=== PATIENT | female | born 1970 | race African-American/Black ===

== ENCOUNTER 2016-12-15 19:03 | Emergency (ER) | payer MEDICAID ==
[~2016-12-15] VITALS: Ht 157.5 cm; Wt 81.6 kg
[~2016-12-15 19:03] MED LIST: ARIP1TAB15 PO; CHOL20007 OR; CLON1TAB3 PO; DOCU100T15 PO; FER325T PO; FLU220IH; GABA-339 PO; LEVE500T22 PO; NIFE90TA30 PO; OXCA600T3 PO; PANT1INJ3 PO; POTA10SO11 PO; PROZAC PO; QUET300T14 PO; RIVA20TA PO; TEMA30CA PO
[2016-12-15] MEDS ORDERED: CLINDAMYCIN 600 MG/4 ML VL IM ONE ×2 (20:45→22:30)
[2016-12-15] MEDS ORDERED: SODIUM CHLORIDE 0.9% 1,000 ML IV ONE (21:15)
[2016-12-15 22:02] LABS: Albumin 3.2 g/dL (3.4-5.0); BUN/Creatinine Ratio 15.9; Calcium 9.4 mg/dL (8.5-10.1); Potassium 3.2 mmol/L (3.5-5.1)
[2016-12-15 22:03] LABS: DEFINITIVE VIEW TRANSMISSION; Hemoglobin 7.8 g/dL (12.2-16.2); Mean Corpuscular Hemoglobin 19.3 pg (28.0-32.0); Mean Corpuscular Hgb Conc. 29.9 g/dL (32.0-36.0); Mean Corpuscular Volume 64.6 fL (80.0-100.0); Mean Platelet Volume 8.9 fL (7.4-10.4); Platelet Count (auto) 340 10^3/uL (140-450); White Blood Cell 11.2 10^3/uL (4.4-10.8)
[2016-12-15 22:04] LABS: Bilirubin, Total 0.2 mg/dL (0.2-1.0); Red Cell Distribution Width 23.8 % (11.6-16.0); Total Protein 7.2 g/dL (6.4-8.2)
[2016-12-15 22:05] LABS: Metamyelocytes % 0; Myelocytes % 0; Promyelocytes % 0; Reactive Lymphocytes 0
[2016-12-15] MEDS ORDERED: HYDROcodone-ACET 10/325MG TAB PO ONE (22:30)
[2016-12-15 22:41] VITALS: BP 145/98
[2016-12-15 22:43] LABS: Platelet Estimate Adequate
[2016-12-15 22:44] LABS: Anisocytosis Moderate; Hypochromia Marked; Microcytosis Marked; Ovalocytes FEW
== END 2016-12-15 22:45 | disposition home or self-care (01) ==
LOC: ER 19:08
DX: L03.818 Cellulitis of other sites (principal); L02.818 Cutaneous abscess of other sites; I10 Essential (primary) hypertension; F17.210 Nicotine dependence, cigarettes, uncomplicated; Z88.6 Allergy status to analgesic agent; Z79.899 Other long term (current) drug therapy
CPT/HCPCS: 36415; 80053; 85007; 85027; 85049; 87040; 87205; 96360; 96372; 99284; J7030

== ENCOUNTER 2017-01-19 05:57 | Emergency (ER) | payer MEDICAID ==
[~2017-01-19] VITALS: Ht 157.5 cm; Wt 83.9 kg
[2017-01-19 07:44] LABS: DEFINITIVE VIEW TRANSMISSION; Hematocrit 29.6 % (36.0-46.0); Mean Corpuscular Hemoglobin 18.9 pg (28.0-32.0); Mean Corpuscular Hgb Conc. 30.4 g/dL (32.0-36.0); Mean Corpuscular Volume 62.3 fL (80.0-100.0); Mean Platelet Volume 11.1 fL (7.4-10.4); Platelet Count (auto) 404 10^3/uL (140-450); SUSPECT VIEW TRANSMISSION
[2017-01-19 07:46] LABS: Red Cell Distribution Width 25.4 % (11.6-16.0); White Blood Cell 7.2 10^3/uL (4.4-10.8)
[2017-01-19 07:51] LABS: Metamyelocytes % 0; Myelocytes % 0; Promyelocytes % 0; Reactive Lymphocytes 0
[2017-01-19] MEDS ORDERED: NALBUPHINE HCL 10 MG/1ml INJECTION IV ONE (08:00)
[2017-01-19] MEDS ORDERED: PROMETHAZINE HCL 25 MG/ML 1ML IV ONE (08:00)
[2017-01-19 08:01] LABS: Platelet Estimate Adequate
[2017-01-19 08:02] LABS: Anisocytosis Marked; Hypochromia Marked; Microcytosis Marked
[2017-01-19 08:03] LABS: Giant Platelets Few; Tear Drop Cells FEW
[2017-01-19 08:04] LABS: Ovalocytes FEW
[2017-01-19 08:20] LABS: Albumin 3.8 g/dL (3.4-5.0); BUN/Creatinine Ratio 15.7; Bilirubin, Total 0.3 mg/dL (0.2-1.0); Calcium 9.8 mg/dL (8.5-10.1); Potassium 3.2 mmol/L (3.5-5.1); Total Protein 8.3 g/dL (6.4-8.2)
[2017-01-19 09:02] LABS: Magnesium 2.2 mg/dL (1.6-2.6)
[2017-01-19 09:32] VITALS: BP 150/92
[2017-01-19 09:32] LABS: Urine Bilirubin Negative (Negative); Urine Color Yellow (Yellow); Urine Glucose Normal (Normal); Urine Ketone Negative (Negative); Urine Mucus FEW (None Seen); Urine Nitrite Negative (Negative); Urine RBC 1985 /hpf (0 - 4); Urine Urobilinogen Normal (Negative); Urine pH 6.5 (5.0-8.0)
[2017-01-19 09:33] LABS: Urine Blood 3+ /uL (Negative)
[2017-01-19] MEDS ORDERED: POTASSIUM CHL 10% (20 MEQ/15ML) ORAL SOLN PO ONE (12:00)
== END 2017-01-19 12:47 | disposition home or self-care (01) ==
LOC: ER 06:03
DX: N93.9 Abnormal uterine and vaginal bleeding, unspecified (principal); D25.9 Leiomyoma of uterus, unspecified; D50.9 Iron deficiency anemia, unspecified; I82.509 Chronic embolism and thrombosis of unspecified deep veins of unspecified lower extremity; G40.909 Epilepsy, unspecified, not intractable, without status epilepticus; N39.0 Urinary tract infection, site not specified; F12.10 Cannabis abuse, uncomplicated; F15.10 Other stimulant abuse, uncomplicated; E87.6 Hypokalemia; I10 Essential (primary) hypertension; F17.210 Nicotine dependence, cigarettes, uncomplicated; Z86.73 Personal history of transient ischemic attack (TIA), and cerebral infarction without residual deficits
CPT/HCPCS: 36415; 76830; 76856; 80053; 81001; 83690; 83735; 84702; 85007; 85025; 85027; 93971; 96374; 96375; 99285; G0434; J2300; J2550

== ENCOUNTER 2017-06-06 19:45 | Emergency (ER) | payer MEDICAID ==
[~2017-06-06] VITALS: Ht 157.5 cm; Wt 81.6 kg
[2017-06-06 21:21] LABS: Basophils # (auto) 0 uL; CONDITION Y; DEFINITIVE SEE PRINTOUT; Eosinophils # (auto) 0.1 uL; Hematocrit 22.8 % (36.0-46.0); Lymphocytes # (auto) 1.8 uL; Lymphocytes % (auto) 29.8 % (10.0-50.0); Mean Corpuscular Hemoglobin 18.7 pg (28.0-32.0); Mean Corpuscular Volume 62.2 fL (80.0-100.0); Mean Platelet Volume 10.5 fL (7.4-10.4); Monocytes # (auto) 0.5 uL; Monocytes % (auto) 8.7 % (0.0-12.0); Neutrophils # (auto) 3.6 uL; Neutrophils % (auto) 60.5 % (37.0-80.0); Platelet Count (auto) 336 10^3/uL (140-450); SUSPECT SEE PRINTOUT; White Blood Cell 5.9 10^3/uL (4.4-10.8)
[2017-06-06 21:39] LABS: INR 0.93 (0.9-1.15); Partial Thromboplastin Time 20.5 sec (22.64-33.71); Prothrombin Time 10.1 sec (9.37-12.3)
[2017-06-06 21:45] LABS: Red Cell Distribution Width 25.9 % (11.6-16.0)
[2017-06-06 21:47] LABS: Hemoglobin 6.9 g/dL (12.2-16.2)
[2017-06-06 21:59] LABS: Albumin 3.1 g/dL (3.4-5.0); Alkaline Phosphatase 67 U/L (45-117); Anion Gap 5 (5-15); Aspartate Aminotransferase 14 U/L (15-37); BUN/Creatinine Ratio 14.1; Bilirubin, Total < 0.1 mg/dL (0.2-1.0); Blood Urea Nitrogen 13 mg/dL (7-18); Calcium 9.2 mg/dL (8.5-10.1); Carbon Dioxide 26 mmol/L (21-32); Chloride 107 mmol/L (98-107); GFR African American 85 mL/min; GFR Non-African American 70 mL/min; Glucose 94 mg/dL (74-106); Potassium 3.1 mmol/L (3.5-5.1); Sodium 138 mmol/L (136-145); Total Protein 6.5 g/dL (6.4-8.2)
[2017-06-06 22:03] LABS: Anisocytosis Marked; Hypochromia Marked; Microcytosis Marked
[2017-06-06 22:04] LABS: Tear Drop Cells FEW
[2017-06-06 22:21] LABS: Ovalocytes FEW; Platelet Estimate Adequate; Schistocytes FEW
[2017-06-06 22:22] LABS: Large Platelets FEW
[2017-06-06 23:21] LABS: Urine Bilirubin Negative (Negative); Urine Color Yellow (Yellow); Urine Glucose Normal (Normal); Urine Ketone Negative (Negative); Urine Mucus FEW (None Seen); Urine Nitrite Negative (Negative); Urine RBC 168 /hpf (0 - 4); Urine Squamous Epithelial Cell FEW /hpf (<5); Urine Urobilinogen Normal (Negative); Urine pH 6.5 (5.0-8.0)
[2017-06-06 23:26] LABS: Urine Blood 2+ /uL (Negative)
[2017-06-07] VITALS (12 sets, daily range): BP systolic 135–159; BP diastolic 71–95
[2017-06-07] MEDS ORDERED: POTASSIUM CHL 20 Meq TABLET PO ONE (06:15)
== END 2017-06-07 07:30 | disposition home or self-care (01) ==
LOC: ER 19:57
DX: N93.8 Other specified abnormal uterine and vaginal bleeding (principal); N39.0 Urinary tract infection, site not specified; D64.9 Anemia, unspecified; F12.10 Cannabis abuse, uncomplicated; F15.10 Other stimulant abuse, uncomplicated; I10 Essential (primary) hypertension; F17.210 Nicotine dependence, cigarettes, uncomplicated; Z86.2 Personal history of diseases of the blood and blood-forming organs and certain disorders involving the immune mechanism; Z86.73 Personal history of transient ischemic attack (TIA), and cerebral infarction without residual deficits; Z88.5 Allergy status to narcotic agent
CPT/HCPCS: 36415; 80053; 80307; 81001; 85025; 85610; 85730; 86850; 86900; 86901; 86902; 99285; J7040; P9016; 36430; 86922

== ENCOUNTER 2017-09-09 07:17 | Emergency (ER) | payer MEDICAID ==
[~2017-09-09] VITALS: Ht 157.5 cm; Wt 90.7 kg
[2017-09-09] MEDS ORDERED: SODIUM CHLORIDE 0.9% 500 ML IVB ONE (08:04)
[2017-09-09] MEDS ORDERED: HYDROmorphone HCL 2 MG/ML VL IV ONE (08:15)
[2017-09-09] MEDS ORDERED: ONDANSETRON HCL 4 MG/2 ML VIAL IV ONE (08:15)
[2017-09-09 08:23] LABS: Hemoglobin 12.6 g/dL (12.2-16.2); Lymphocytes # (auto) 0.8 uL; Mean Platelet Volume 8.5 fL (6.9-10.8); Monocytes # (auto) 0.5 uL; Neutrophils # (auto) 7.7 uL; Neutrophils % (auto) 84.4 % (37.0-80.0); White Blood Cell 9.1 10^3/uL (4.4-10.8)
[2017-09-09 08:25] LABS: Basophils # (auto) 0 uL; Basophils % (auto) 0.5 % (0.0-2.0); Eosinophils # (auto) 0 uL; Eosinophils % (auto) 0.5 % (0.0-7.0); Hematocrit 39.5 % (36.0-46.0); Lymphocytes % (auto) 8.6 % (10.0-50.0); Mean Corpuscular Hemoglobin 23.8 pg (28.0-32.0); Mean Corpuscular Volume 74.2 fL (80.0-100.0); Nucleated Red Blood Cells % 0.1 %; Platelet Count (auto) 300 10^3/uL (140-450)
[2017-09-09 08:26] LABS: Red Cell Distribution Width 24.8 % (11.8-14.3)
[2017-09-09 08:47] LABS: Albumin 3.9 g/dL (3.4-5.0); BUN/Creatinine Ratio 16.7; Bilirubin, Total 0.2 mg/dL (0.2-1.0); Total Protein 8.2 g/dL (6.4-8.2)
[2017-09-09 08:53] LABS: Potassium 3.8 mmol/L (3.5-5.1)
[2017-09-09 09:38] LABS: Urine Bilirubin Negative (Negative); Urine Blood 3+ /uL (Negative); Urine Color Yellow (Yellow); Urine Glucose Normal (Normal); Urine Ketone Negative (Negative); Urine Nitrite Negative (Negative); Urine RBC 2456 /hpf (0 - 4); Urine Squamous Epithelial Cell FEW /hpf (<5); Urine Urobilinogen Normal (Negative)
[2017-09-09 10:09] LABS: Hypochromia Moderate; Microcytosis Moderate; Ovalocytes FEW; Platelet Estimate Adequate; Schistocytes FEW; Tear Drop Cells FEW
[2017-09-09 10:10] LABS: Anisocytosis Moderate
[2017-09-09 11:11] VITALS: BP 134/88
== END 2017-09-09 11:30 | disposition home or self-care (01) ==
LOC: EDBD 07:17 → ER 07:17
DX: N93.8 Other specified abnormal uterine and vaginal bleeding (principal); D25.9 Leiomyoma of uterus, unspecified; F17.210 Nicotine dependence, cigarettes, uncomplicated; I10 Essential (primary) hypertension; I25.2 Old myocardial infarction; Z86.73 Personal history of transient ischemic attack (TIA), and cerebral infarction without residual deficits; Z88.6 Allergy status to analgesic agent
CPT/HCPCS: 36415; 76856; 80053; 81001; 83690; 85025; 94761; 96361; 96374; 96375; 99285; J1170; J2405; J7030

== ENCOUNTER 2017-12-05 11:31 | Emergency (ER) | payer MEDICAID ==
[~2017-12-05] VITALS: Ht 157.5 cm; Wt 91.6 kg
[2017-12-05 11:40] VITALS: BP 132/94
[2017-12-05 12:15] LABS: Basophils # (auto) 0.1 uL; Eosinophils # (auto) 0.1 uL; Eosinophils % (auto) 1.1 % (0.0-7.0); White Blood Cell 6.9 10^3/uL (4.4-10.8)
[2017-12-05 12:17] LABS: Hematocrit 42.9 % (36.0-46.0); Hemoglobin 13.8 g/dL (12.2-16.2); Lymphocytes # (auto) 1.4 uL; Lymphocytes % (auto) 19.8 % (10.0-50.0); Mean Corpuscular Hemoglobin 24.9 pg (28.0-32.0); Mean Corpuscular Volume 77.6 fL (80.0-100.0); Monocytes # (auto) 0.4 uL; Neutrophils % (auto) 72.1 % (37.0-80.0); Nucleated Red Blood Cells % 0.3 %; Platelet Count (auto) 383 10^3/uL (140-450); Red Blood Cells 5.53 10^6/uL (4.0-5.20)
[2017-12-05 12:22] LABS: Red Cell Distribution Width 20.5 % (11.8-14.3)
[2017-12-05 12:43] LABS: Albumin 3.9 g/dL (3.4-5.0); Anion Gap 6 (5-15); Blood Urea Nitrogen 19 mg/dL (7-18); Calcium 10.8 mg/dL (8.5-10.1); Carbon Dioxide 27 mmol/L (21-32); Chloride 105 mmol/L (98-107); GFR African American 105 mL/min; GFR Non-African American 87 mL/min; Glucose 109 mg/dL (74-106); Potassium 3.3 mmol/L (3.5-5.1); Sodium 138 mmol/L (136-145)
[2017-12-05 12:49] LABS: Alanine Aminotransferase 27 U/L (13-56); Alkaline Phosphatase 112 U/L (45-117); Aspartate Aminotransferase 16 U/L (15-37); Bilirubin, Total < 0.1 mg/dL (0.2-1.0); Total Protein 8.5 g/dL (6.4-8.2)
[2017-12-05] MEDS ORDERED: LEVETIRACETAM 500 MG TAB PO ONE (15:00)
== END 2017-12-05 15:43 | disposition home or self-care (01) ==
LOC: ER 11:31
DX: G40.909 Epilepsy, unspecified, not intractable, without status epilepticus (principal); I10 Essential (primary) hypertension; I25.2 Old myocardial infarction; G43.909 Migraine, unspecified, not intractable, without status migrainosus; F17.210 Nicotine dependence, cigarettes, uncomplicated
CPT/HCPCS: 36415; 70450; 80053; 82542; 85025

== ENCOUNTER 2018-01-08 05:30 | Emergency (ER) | payer MEDICAID ==
[~2018-01-08] VITALS: Ht 167.6 cm; Wt 90.7 kg
[2018-01-08 07:19] LABS: Basophils # (auto) 0.1 uL; Basophils % (auto) 0.8 % (0.0-2.0); Eosinophils # (auto) 0 uL; Eosinophils % (auto) 0.6 % (0.0-7.0); Hematocrit 40.1 % (36.0-46.0); Hemoglobin 13.2 g/dL (12.2-16.2); Lymphocytes # (auto) 0.8 uL; Lymphocytes % (auto) 12.8 % (10.0-50.0); Mean Corpuscular Hemoglobin 25.7 pg (28.0-32.0); Mean Corpuscular Hgb Conc. 32.9 g/dL (32.0-36.0); Mean Corpuscular Volume 78.1 fL (80.0-100.0); Monocytes # (auto) 0.4 uL; Monocytes % (auto) 6.1 % (0.0-12.0); Neutrophils % (auto) 79.7 % (37.0-80.0); Nucleated Red Blood Cells % 0.5 %; Platelet Count (auto) 316 10^3/uL (140-450); Red Blood Cells 5.13 10^6/uL (4.0-5.20); Red Cell Distribution Width 20.7 % (11.8-14.3); White Blood Cell 6.3 10^3/uL (4.4-10.8)
[2018-01-08 07:36] LABS: INR 0.95 (0.9-1.15); Prothrombin Time 10.3 sec (9.37-12.3)
[2018-01-08 07:37] LABS: Calcium 10.8 mg/dL (8.5-10.1)
[2018-01-08 07:39] LABS: BUN/Creatinine Ratio 23.4
[2018-01-08 07:42] LABS: Bilirubin, Total 0.4 mg/dL (0.2-1.0); Total Protein 8.9 g/dL (6.4-8.2)
[2018-01-08 07:46] LABS: Potassium 2.8 mmol/L (3.5-5.1)
[2018-01-08 08:24] VITALS: BP 169/105
[2018-01-08] MEDS ORDERED: POTASSIUM CHL 10% (20 MEQ/15ML) 15ml ORAL SOLN PO ONE (12:00)
== END 2018-01-08 12:31 | disposition home or self-care (01) ==
LOC: ER 05:32
DX: M79.605 Pain in left leg (principal); L29.9 Pruritus, unspecified; I10 Essential (primary) hypertension; I25.2 Old myocardial infarction; F17.210 Nicotine dependence, cigarettes, uncomplicated; Z86.73 Personal history of transient ischemic attack (TIA), and cerebral infarction without residual deficits; Z86.718 Personal history of other venous thrombosis and embolism; Z88.6 Allergy status to analgesic agent; Z79.899 Other long term (current) drug therapy
CPT/HCPCS: 36415; 80053; 85025; 85379; 85610; 93970

== ENCOUNTER 2018-12-05 15:32 | Emergency (ER) | payer MEDICAID ==
[~2018-12-05 15:32] MED LIST changes: -CLON1TAB3 PO; +CLON1TAB4 PO
[2018-12-05] MEDS ORDERED: HYDROcodone-ACET 10/325MG TAB PO ONE ×2 (15:45→16:00)
[2018-12-05 16:04] LABS: Basophils # (auto) 0 uL; Basophils % (auto) 0.7 % (0.0-2.0); Eosinophils # (auto) 0.1 uL; Eosinophils % (auto) 1.3 % (0.0-7.0); Hemoglobin 13.6 g/dL (12.2-16.2); Lymphocytes # (auto) 1.3 uL; Lymphocytes % (auto) 22.3 % (10.0-50.0); Mean Corpuscular Volume 81.7 fL (80.0-100.0); Monocytes # (auto) 0.5 uL; Monocytes % (auto) 8.2 % (0.0-12.0); Neutrophils # (auto) 3.8 uL; Neutrophils % (auto) 67.5 % (37.0-80.0); Nucleated Red Blood Cells % 0.1 %; Platelet Count (auto) 219 10^3/uL (140-450); Red Blood Cells 5.02 10^6/uL (4.0-5.20); White Blood Cell 5.6 10^3/uL (4.4-10.8)
[2018-12-05 16:25] LABS: Alanine Aminotransferase 34 U/L (13-56); Albumin 3.5 g/dL (3.4-5.0); Anion Gap 4 (5-15); Aspartate Aminotransferase 29 U/L (15-37); Blood Urea Nitrogen 19 mg/dL (7-18); Calcium 9.3 mg/dL (8.5-10.1); Carbon Dioxide 30 mmol/L (21-32); Chloride 108 mmol/L (98-107); Glucose 72 mg/dL (74-106); Potassium 3.1 mmol/L (3.5-5.1); Sodium 142 mmol/L (136-145)
[2018-12-05 16:30] LABS: Alkaline Phosphatase 124 U/L (45-117); Bilirubin, Total 0.3 mg/dL (0.2-1.0); GFR African American 81 mL/min; GFR Non-African American 67 mL/min; Total Protein 7.5 g/dL (6.4-8.2)
[2018-12-05] MEDS ORDERED: KETOROLAC TROMETH 60MG/2ML VIAL IM ONE (18:45)
[2018-12-05] MEDS ORDERED: POTASSIUM EFFERVESENT TAB 25 MEQ PO ONE (18:45)
[2018-12-05 19:30] VITALS: BP 151/89
== END 2018-12-05 20:01 | disposition home or self-care (01) ==
LOC: EDBD 15:32 → ER 15:35
DX: S39.012A Strain of muscle, fascia and tendon of lower back, initial encounter (principal); E87.6 Hypokalemia; I10 Essential (primary) hypertension; I25.2 Old myocardial infarction; F17.210 Nicotine dependence, cigarettes, uncomplicated; F12.90 Cannabis use, unspecified, uncomplicated; F15.90 Other stimulant use, unspecified, uncomplicated; Z88.5 Allergy status to narcotic agent; Z79.899 Other long term (current) drug therapy; Z86.73 Personal history of transient ischemic attack (TIA), and cerebral infarction without residual deficits; X50.9XXA Other and unspecified overexertion or strenuous movements or postures, initial encounter; Y93.89 Activity, other specified; Y99.8 Other external cause status; Y92.89 Other specified places as the place of occurrence of the external cause
CPT/HCPCS: 36415; 72100; 80053; 84484; 85025; 96372; 99284; J1885

== ENCOUNTER 2018-12-23 19:18 | Emergency (ER) | payer MEDICAID ==
[~2018-12-23] VITALS: Ht 157.5 cm; Wt 90.7 kg
[2018-12-23 19:55] VITALS: BP 135/83
== END 2018-12-24 00:41 | disposition left against medical advice (07) ==
LOC: ER 19:18 → EDBD 19:18 → EDUNIT# 19:18 → ER 12-24 00:41
DX: R51 Headache (principal); Z53.21 Procedure and treatment not carried out due to patient leaving prior to being seen by health care provider
CPT/HCPCS: 70450; 71045

== ENCOUNTER 2019-08-21 07:06 | Emergency (ER) | payer MEDICAID ==
[~2019-08-21] VITALS: Ht 157.5 cm; Wt 97.5 kg
[~2019-08-21 07:06] MED LIST changes: -ARIP1TAB15 PO; +ARIP1TAB63 PO; +CLON1TAB10 PO; -CLON1TAB4 PO
[2019-08-21] MEDS ORDERED: SODIUM CHLORIDE 0.9% 1,000 ML IV ONE (08:43)
[2019-08-21 08:59] LABS: Basophils # (auto) 0.1 uL; Basophils % (auto) 0.8 % (0.0-2.0); Eosinophils # (auto) 0.1 uL; Eosinophils % (auto) 1.5 % (0.0-7.0); Hematocrit 46.7 % (36.0-46.0); Lymphocytes # (auto) 1.3 uL; Lymphocytes % (auto) 18.9 % (10.0-50.0); Mean Corpuscular Hemoglobin 28.1 pg (28.0-32.0); Mean Corpuscular Hgb Conc. 34.2 g/dL (32.0-36.0); Monocytes # (auto) 0.5 uL; Monocytes % (auto) 6.9 % (0.0-12.0); Neutrophils # (auto) 4.9 uL; Neutrophils % (auto) 71.9 % (37.0-80.0); Nucleated Red Blood Cells % 0.2 %; Platelet Count (auto) 233 10^3/uL (140-450); Red Blood Cells 5.69 10^6/uL (4.0-5.20); Red Cell Distribution Width 16.9 % (11.8-14.3); White Blood Cell 6.9 10^3/uL (4.4-10.8)
[2019-08-21 09:16] LABS: Albumin 3.8 g/dL (3.4-5.0); BUN/Creatinine Ratio 13.8; Calcium 9.8 mg/dL (8.5-10.1); Potassium 3.1 mmol/L (3.5-5.1)
[2019-08-21 09:18] LABS: Bilirubin, Total 0.4 mg/dL (0.2-1.0); Total Protein 8.1 g/dL (6.4-8.2)
[2019-08-21] MEDS ORDERED: POTASSIUM EFFERVESENT TAB 25 MEQ PO ONE (10:15)
[2019-08-21] MEDS ORDERED: HYDROcodone-ACET 5/325MG TAB PO ONE (10:30)
[2019-08-21 10:54] VITALS: BP 111/79
== END 2019-08-21 11:27 | disposition home or self-care (01) ==
LOC: EDBD 07:06 → ER 07:08
DX: G40.909 Epilepsy, unspecified, not intractable, without status epilepticus (principal); E87.6 Hypokalemia; I25.2 Old myocardial infarction; I10 Essential (primary) hypertension; F17.210 Nicotine dependence, cigarettes, uncomplicated; F12.10 Cannabis abuse, uncomplicated; F15.10 Other stimulant abuse, uncomplicated; F14.10 Cocaine abuse, uncomplicated; Z86.73 Personal history of transient ischemic attack (TIA), and cerebral infarction without residual deficits
CPT/HCPCS: 36415; 70450; 72125; 80053; 85025; 99284; J7030

== ENCOUNTER 2020-05-14 11:47 | Inpatient (IN) | payer MEDICAID ==
[~2020-05-14] VITALS: Ht 170.2 cm; Wt 93.6 kg
[~2020-05-14 11:47] MED LIST changes: -NIFE90TA30 PO; +NIFE90TA49 PO
[2020-05-14 12:27] LABS: Basophils # (auto) 0.1 10 ^3/uL (0-0.2); Basophils % (auto) 0.6 % (0.0-2.0); Eosinophils # (auto) 0 10 ^3/uL (0-0.8); Eosinophils % (auto) 0.2 % (0.0-7.0); Hematocrit 46.2 % (36.0-46.0); Hemoglobin 15.7 g/dL (12.2-16.2); Lymphocytes # (auto) 1.3 10 ^3/uL (0.4-5.4); Lymphocytes % (auto) 12.2 % (10.0-50.0); Mean Corpuscular Hemoglobin 28.1 pg (28.0-32.0); Mean Corpuscular Hgb Conc. 34.1 g/dL (32.0-36.0); Mean Corpuscular Volume 82.6 fL (80.0-100.0); Monocytes # (auto) 0.6 10 ^3/uL (0-1.3); Neutrophils # (auto) 8.6 10 ^3/uL (1.6-8.6); Nucleated Red Blood Cells % 0.2 %; Platelet Count (auto) 315 10^3/uL (140-450); Red Blood Cells 5.59 10^6/uL (4.0-5.20); Red Cell Distribution Width 16.5 % (11.8-14.3); White Blood Cell 10.6 10^3/uL (4.4-10.8)
[2020-05-14] MEDS ORDERED: SODIUM CHLORIDE 0.9% 500 ML IVB ONE (12:27)
[2020-05-14] MEDS ORDERED: SODIUM CHLORIDE 0.9% 1,000 ML IV ONE (12:27)
[2020-05-14 12:47] LABS: Albumin 3.8 g/dL (3.4-5.0); Anion Gap 12 (5-15); Blood Urea Nitrogen 23 mg/dL (7-18); Calcium 11.1 mg/dL (8.5-10.1); Carbon Dioxide 27 mmol/L (21-32); Chloride 98 mmol/L (98-107); Glucose 160 mg/dL (74-106); Sodium 137 mmol/L (136-145)
[2020-05-14 12:52] LABS: Alanine Aminotransferase 23 U/L (13-56); Alkaline Phosphatase 91 U/L (45-117); Aspartate Aminotransferase 14 U/L (15-37); Bilirubin, Total 0.5 mg/dL (0.2-1.0); GFR African American 32 mL/min; GFR Non-African American 27 mL/min; Total Protein 8.3 g/dL (6.4-8.2)
[2020-05-14 12:55] LABS: INR 1.26 (0.9-1.15); Partial Thromboplastin Time 27.3 sec (23.64-32.05)
[2020-05-14 12:58] LABS: Lactic Acid w/Reflex 3.6 mmol/L (0.4-2.0)
[2020-05-14] MEDS ORDERED: BACITRACIN TOP OINT 1 UD PKG TOP ONE (13:15)
[2020-05-14] MEDS ORDERED: LIDOCAINE 2%HCL (LOCAL ANESTH.) INJ 20ML MDV ID ONE (13:15)
[2020-05-14] MEDS ORDERED: LIDOCAINE 2% (LOCAL ANESTH.) PF 5ml SDV ONE ×2 (13:25→13:36)
[2020-05-14] MEDS ORDERED: POTASSIUM EFFERVESENT TAB 25 MEQ PO ONE (15:30)
[2020-05-14] MEDS ORDERED: NITROGLYCERIN 0.4 MG SL TAB SL PRN (15:45)
[2020-05-14] MEDS ORDERED: HYDROcodone-ACET 5/325MG TAB PO PRN (15:45)
[2020-05-14] MEDS ORDERED: ACETAMINOPHEN 500 MG TAB PO PRN (15:45)
[2020-05-14] MEDS ORDERED: ONDANSETRON HCL 4 MG/2 ML VIAL IV PRN (15:45)
[2020-05-14] MEDS ORDERED: MEPERIDINE HCL (25 MG/ML) 1ML VIAL IV PRN (15:45)
[2020-05-14] MEDS: SODIUM CHLORIDE 0.9% 1,000 ML IV SCH (16:09)
[2020-05-14] MEDS ORDERED: NICOTINE 21MG/24 HR TOPICAL PATCH TD ONE (16:15)
[2020-05-14] MEDS: cefTRIAXone 1GM/50ML D5W 50 ML IV SCH (16:16)
--- NOTE | 2020-05-14 20:45 | NUR ---
Telemetry admit from ER CJBRISSA admitted to Telemetry unit after SBAR received. Patient oriented to GIANNA DUNLAP, primary RN, unit, room, bed, and unit policies regarding patient care and visiting hours. Patient now on continuous telemetry monitoring, tele box #[id number] and telemetry reading on arrival to unit is SB. Patient now laying in bed with rails up x2, bed locked in lowest locked position, call light explained and placed within reach. Patient placed on bedside oxygen, weighed by bedscale and encouraged to call if they need something. All questions and concerns addressed, patient verbalized understanding.
[2020-05-14 21:26] VITALS: BP 114/80
[2020-05-14 22:00] VITALS: BP 114/80
[2020-05-14] MEDS ORDERED: Aripiprazole 30 MG PO SCH (22:00)
[2020-05-15] MEDS: SODIUM CHLORIDE 0.9% 1,000 ML IV SCH (04:51)
[2020-05-15 05:00] VITALS: BP 125/84
--- NOTE | 2020-05-15 05:25 | NUR ---
MRSA swab sent to lab.
[2020-05-15 06:35] LABS: Basophils # (auto) 0 10 ^3/uL (0-0.2); Basophils % (auto) 0.4 % (0.0-2.0); Eosinophils # (auto) 0 10 ^3/uL (0-0.8); Eosinophils % (auto) 0.1 % (0.0-7.0); Hematocrit 44.2 % (36.0-46.0); Hemoglobin 14.4 g/dL (12.2-16.2); Lymphocytes # (auto) 1.5 10 ^3/uL (0.4-5.4); Lymphocytes % (auto) 17.6 % (10.0-50.0); Mean Corpuscular Hemoglobin 27.3 pg (28.0-32.0); Mean Corpuscular Hgb Conc. 32.7 g/dL (32.0-36.0); Mean Corpuscular Volume 83.4 fL (80.0-100.0); Monocytes # (auto) 0.7 10 ^3/uL (0-1.3); Monocytes % (auto) 8.2 % (0.0-12.0); Neutrophils # (auto) 6.4 10 ^3/uL (1.6-8.6); Neutrophils % (auto) 73.7 % (37.0-80.0); Nucleated Red Blood Cells % 0.1 %; Platelet Count (auto) 213 10^3/uL (140-450); Red Cell Distribution Width 16.4 % (11.8-14.3); White Blood Cell 8.7 10^3/uL (4.4-10.8)
[2020-05-15 06:57] LABS: Potassium 3.1 mmol/L (3.5-5.1)
[2020-05-15 07:24] LABS: Albumin 3.2 g/dL (3.4-5.0); BUN/Creatinine Ratio 22.7
[2020-05-15 07:27] LABS: Bilirubin, Total 0.5 mg/dL (0.2-1.0); Total Protein 7.3 g/dL (6.4-8.2)
--- NOTE | 2020-05-15 07:30 | NUR ---
Opening Shift Note Assuming care of patient at this time. Patient is resting with eyes closed. Bed is locked and lowered with side rails up x2. Will instruct patient on the plan of care for today and to call for assistance as needed. Call light within reach. Will continue to round hourly and as needed.
[2020-05-15 08:40] VITALS: BP 137/85
[2020-05-15] MEDS: cefTRIAXone 1GM/50ML D5W 50 ML IV SCH (09:00)
--- NOTE | 2020-05-15 09:20 | NUR ---
Telepsych Consult Telepsych consult is placed at this time. Monitor is in room and on, pointing at patient. Awaiting consult.
[2020-05-15] MEDS ORDERED: PATIENTS OWN MEDICATION (xarelto 20 MG) PO SCH (10:00)
[2020-05-15] MEDS ORDERED: PANTOPRAZOLE 40 MG TAB PO SCH (10:00)
[2020-05-15] MEDS ORDERED: RIVAROXABAN 20 MG TAB PO SCH (10:00)
[2020-05-15] MEDS ORDERED: FAMOTIDINE 20 MG TAB PO SCH (10:00)
[2020-05-15] MEDS ORDERED: NICOTINE 21MG/24 HR TOPICAL PATCH TD SCH (10:00)
--- NOTE | 2020-05-15 10:00 | NUR ---
Patient Behavior Patient is screaming and yelling in room. Upon entering room, patient is crying and upset. Patient states that she does not need help from a psychiatrist. Patient states it was a [employer] violation to discuss her medical care in the room with psychiatrist. Patient states that no one is trying to help her. Patient expresses desire to go home. Patient would like to leave against medical advice.
--- NOTE | 2020-05-15 11:00 | NUR ---
AMA Note BRISSA CORONA S states they want to leave the hospital Against Medical Advice (AMA). Patient encouraged to stay for further treatment/stabilization. Jerson ALVAREZ notified of patient's wishes. Patient advised of the risks and benefits of leaving AMA. Patient verbalized understanding. Patient encouraged to return to the ER if symptoms do not improve or worsen.
[2020-05-15 13:00] VITALS: BP 95/56
--- NOTE | 2020-05-15 13:50 | NUR ---
Patient left AMA prior to assessment
== END 2020-05-15 10:20 | disposition left against medical advice (07) | DRG 384 ==
LOC: ER 11:47 → EDBD 11:47 → TELE 11:48 → TELE-EAST 20:45
PROVIDERS: ADMIT Nurse Practitioner Acute Care; ATTEND Internal Medicine
PROC: 0HQDXZZ Repair Right Lower Arm Skin, External Approach (ICD-10-PCS; principal; 2020-05-14)
DX: S61.511A Laceration without foreign body of right wrist, initial encounter (principal); D68.9 Coagulation defect, unspecified; E11.21 Type 2 diabetes mellitus with diabetic nephropathy; R00.1 Bradycardia, unspecified; R55 Syncope and collapse; E87.6 Hypokalemia; E83.52 Hypercalcemia; Z53.29 Procedure and treatment not carried out because of patient's decision for other reasons; G40.909 Epilepsy, unspecified, not intractable, without status epilepticus; F19.10 Other psychoactive substance abuse, uncomplicated; F31.9 Bipolar disorder, unspecified; W18.39XA Other fall on same level, initial encounter; F17.210 Nicotine dependence, cigarettes, uncomplicated; F41.9 Anxiety disorder, unspecified; K21.9 Gastro-esophageal reflux disease without esophagitis; I10 Essential (primary) hypertension; J44.9 Chronic obstructive pulmonary disease, unspecified; Z79.01 Long term (current) use of anticoagulants; Z80.3 Family history of malignant neoplasm of breast; Z82.0 Family history of epilepsy and other diseases of the nervous system; Z82.49 Family history of ischemic heart disease and other diseases of the circulatory system; Z86.73 Personal history of transient ischemic attack (TIA), and cerebral infarction without residual deficits; Z90.710 Acquired absence of both cervix and uterus; Y93.89 Activity, other specified; Y92.098 Other place in other non-institutional residence as the place of occurrence of the external cause; Y99.8 Other external cause status; Z88.5 Allergy status to narcotic agent
CPT/HCPCS: 36415; 71045; 73110; 80053; 82962; 83605; 83735; 84443; 84484; 85025; 85610; 85730; 87040; 87081; 93005; 96360; 96361; G0378; J0696; J2001

== ENCOUNTER 2021-02-25 04:55 | Emergency (ER) | payer MEDICAID ==
[~2021-02-25] VITALS: Ht 162.6 cm; Wt 90.7 kg
[~2021-02-25 04:55] MED LIST changes: -DOCU100T15 PO; -LEVE500T22 PO; +LEVE500T32 PO; -OXCA600T3 PO; -POTA10SO11 PO; -QUET300T14 PO; -TEMA30CA PO
[2021-02-25 07:45] VITALS: BP 145/91
== END 2021-02-25 07:59 | disposition home or self-care (01) ==
LOC: EDBD 04:55 → ER 04:55
DX: M79.662 Pain in left lower leg (principal); L90.5 Scar conditions and fibrosis of skin; B35.6 Tinea cruris; I10 Essential (primary) hypertension; K21.9 Gastro-esophageal reflux disease without esophagitis; Z86.73 Personal history of transient ischemic attack (TIA), and cerebral infarction without residual deficits; Z90.710 Acquired absence of both cervix and uterus; Z79.899 Other long term (current) drug therapy; Z88.6 Allergy status to analgesic agent
CPT/HCPCS: 93971

== ENCOUNTER 2021-06-25 23:16 | Emergency (ER) | payer MEDICAID ==
[~2021-06-25] VITALS: Ht 157.5 cm; Wt 90.7 kg
[~2021-06-25 23:16] MED LIST changes: +CLON-853 PO; -CLON1TAB10 PO
[2021-06-25 23:22] VITALS: BP 137/86
[2021-06-26 00:27] LABS: Basophils # (auto) 0 10 ^3/uL (0-0.2); Basophils % (auto) 0.6 % (0.0-2.0); Eosinophils # (auto) 0 10 ^3/uL (0-0.8); Eosinophils % (auto) 0.7 % (0.0-7.0); Hematocrit 42.2 % (36.0-46.0); Hemoglobin 14.2 g/dL (12.2-16.2); Lymphocytes # (auto) 1.5 10 ^3/uL (0.4-5.4); Lymphocytes % (auto) 23.1 % (10.0-50.0); Mean Corpuscular Hemoglobin 27.6 pg (28.0-32.0); Mean Corpuscular Hgb Conc. 33.6 g/dL (32.0-36.0); Mean Corpuscular Volume 82.2 fL (80.0-100.0); Monocytes # (auto) 0.5 10 ^3/uL (0-1.3); Monocytes % (auto) 7.9 % (0.0-12.0); Neutrophils # (auto) 4.5 10 ^3/uL (1.6-8.6); Neutrophils % (auto) 67.7 % (37.0-80.0); Nucleated Red Blood Cells % 0.2 %; Red Blood Cells 5.13 10^6/uL (4.0-5.20); White Blood Cell 6.6 10^3/uL (4.4-10.8)
[2021-06-26 00:47] LABS: Albumin 3.9 g/dL (3.4-5.0); BUN/Creatinine Ratio 22.8; Calcium 10.3 mg/dL (8.5-10.1); Potassium 3.4 mmol/L (3.5-5.1)
[2021-06-26 00:48] LABS: Partial Thromboplastin Time 23.1 sec (23.0-31.2)
[2021-06-26 00:49] LABS: Bilirubin, Total 0.3 mg/dL (0.2-1.0); Total Protein 7.7 g/dL (6.4-8.2)
[2021-06-26] MEDS ORDERED: POTASSIUM CHL 20 Meq TABLET PO ONE (01:30)
== END 2021-06-26 02:48 | disposition home or self-care (01) ==
LOC: ER 23:16
DX: G44.209 Tension-type headache, unspecified, not intractable (principal); E86.0 Dehydration; I10 Essential (primary) hypertension; I25.2 Old myocardial infarction; K21.9 Gastro-esophageal reflux disease without esophagitis; F17.210 Nicotine dependence, cigarettes, uncomplicated; Z86.73 Personal history of transient ischemic attack (TIA), and cerebral infarction without residual deficits; Z86.2 Personal history of diseases of the blood and blood-forming organs and certain disorders involving the immune mechanism; Z90.710 Acquired absence of both cervix and uterus
CPT/HCPCS: 36415; 70450; 80053; 85025; 85610; 85730

== ENCOUNTER 2021-07-07 10:50 | Emergency (ER) | payer MEDICAID ==
[~2021-07-07] VITALS: Ht 157.5 cm; Wt 90.7 kg
[~2021-07-07 10:50] MED LIST changes: -CLON-853 PO; +CLON1TAB10 PO
[2021-07-07] MEDS ORDERED: SODIUM CHLORIDE 0.9% 1,000 ML IV ONE (12:00)
[2021-07-07 12:22] LABS: Basophils # (auto) 0 10 ^3/uL (0-0.2); Basophils % (auto) 0.2 % (0.0-2.0); Eosinophils # (auto) 0 10 ^3/uL (0-0.8); Eosinophils % (auto) 0.2 % (0.0-7.0); Hematocrit 45.4 % (36.0-46.0); Hemoglobin 14.8 g/dL (12.2-16.2); Lymphocytes # (auto) 0.8 10 ^3/uL (0.4-5.4); Lymphocytes % (auto) 5.9 % (10.0-50.0); Mean Corpuscular Hemoglobin 27.6 pg (28.0-32.0); Mean Corpuscular Hgb Conc. 32.6 g/dL (32.0-36.0); Mean Corpuscular Volume 84.6 fL (80.0-100.0); Monocytes # (auto) 0.6 10 ^3/uL (0-1.3); Monocytes % (auto) 4.3 % (0.0-12.0); Neutrophils # (auto) 11.8 10 ^3/uL (1.6-8.6); Neutrophils % (auto) 89.4 % (37.0-80.0); Red Blood Cells 5.36 10^6/uL (4.0-5.20); Red Cell Distribution Width 16.8 % (11.8-14.3); White Blood Cell 13.2 10^3/uL (4.4-10.8)
[2021-07-07 13:13] LABS: Anion Gap 2 (5-15); Blood Urea Nitrogen 18 mg/dL (7-18); Carbon Dioxide 24 mmol/L (21-32); Chloride 109 mmol/L (98-107); Glucose 88 mg/dL (74-106); Potassium 3.8 mmol/L (3.5-5.1); Sodium 135 mmol/L (136-145)
[2021-07-07 13:14] LABS: Alanine Aminotransferase 26 U/L (13-56); Albumin 3.5 g/dL (3.4-5.0); Alkaline Phosphatase 107 U/L (45-117); Aspartate Aminotransferase 17 U/L (15-37); BUN/Creatinine Ratio 18.6; Bilirubin, Total 0.5 mg/dL (0.2-1.0); Calcium 10.1 mg/dL (8.5-10.1); GFR African American 78 mL/min; GFR Non-African American 65 mL/min; Total Protein 8.2 g/dL (6.4-8.2)
[2021-07-07 16:00] VITALS: BP 138/90
[2021-07-07] MEDS ORDERED: FUROSEMIDE 20 MG/2 ML VIAL IV ONE (16:00)
== END 2021-07-07 16:47 | disposition home or self-care (01) ==
LOC: ER 10:50 → EDBD 10:50 → ER 16:47
DX: F41.9 Anxiety disorder, unspecified (principal); K52.9 Noninfective gastroenteritis and colitis, unspecified; D72.829 Elevated white blood cell count, unspecified; I10 Essential (primary) hypertension; I25.2 Old myocardial infarction; K21.9 Gastro-esophageal reflux disease without esophagitis; F17.210 Nicotine dependence, cigarettes, uncomplicated; Z86.73 Personal history of transient ischemic attack (TIA), and cerebral infarction without residual deficits; Z86.2 Personal history of diseases of the blood and blood-forming organs and certain disorders involving the immune mechanism; Z79.899 Other long term (current) drug therapy; Z88.5 Allergy status to narcotic agent
CPT/HCPCS: 36415; 71046; 80053; 83880; 84484; 85025; 93005; 96360; 99285; J7030

== ENCOUNTER 2023-04-16 05:11 | Emergency (ER) | payer MEDICAID ==
[~2023-04-16] VITALS: Ht 157.5 cm; Wt 90.9 kg
[~2023-04-16 05:11] MED LIST changes: +CLON-853 PO; -CLON1TAB10 PO
[2023-04-16 05:15] VITALS: BP 140/99
== END 2023-04-16 06:20 | disposition left against medical advice (07) ==
LOC: ER 05:11
DX: R07.0 Pain in throat (principal); Z53.21 Procedure and treatment not carried out due to patient leaving prior to being seen by health care provider

== ENCOUNTER 2023-07-29 08:07 | Emergency (ER) | payer MEDICAID ==
[~2023-07-29] VITALS: Ht 157.5 cm; Wt 95.4 kg
[~2023-07-29 08:07] MED LIST changes: -LEVE500T32 PO; +LEVE500T40 PO; -NIFE90TA49 PO; +NIFE90TA75 PO
[2023-07-29 08:20] VITALS: BP 131/85; PULSE 71; RESP 18; O2SAT 99
[2023-07-29 09:14] LABS: Basophils # (auto) 0 10 ^3/uL (0-0.2); Basophils % (auto) 0.7 % (0.0-2.0); Eosinophils # (auto) 0.1 10 ^3/uL (0-0.8); Eosinophils % (auto) 1.6 % (0.0-7.0); Hematocrit 43.4 % (36.0-46.0); Hemoglobin 14.1 g/dL (12.2-16.2); Lymphocytes # (auto) 1.2 10 ^3/uL (0.4-5.4); Lymphocytes % (auto) 22.6 % (10.0-50.0); Mean Corpuscular Hemoglobin 27.2 pg (28.0-32.0); Mean Corpuscular Hgb Conc. 32.5 g/dL (32.0-36.0); Mean Corpuscular Volume 83.7 fL (80.0-100.0); Monocytes # (auto) 0.4 10 ^3/uL (0-1.3); Monocytes % (auto) 8.1 % (0.0-12.0); Neutrophils # (auto) 3.5 10 ^3/uL (1.6-8.6); Nucleated Red Blood Cells % 0.1 %; Red Blood Cells 5.18 10^6/uL (4.0-5.20); Red Cell Distribution Width 17.4 % (11.8-14.3); White Blood Cell 5.1 10^3/uL (4.4-10.8)
[2023-07-29 09:58] LABS: Alanine Aminotransferase 20 U/L (7-40); Albumin 4.2 g/dL (3.2-4.8); Alkaline Phosphatase 116 U/L (46-116); Anion Gap 9.3 (5-15); Aspartate Aminotransferase 10 U/L (13-40); BUN/Creatinine Ratio 14.2 (10.0-20.0); Bilirubin, Total 0.2 mg/dL (0.2-1.0); Blood Urea Nitrogen 17 mg/dL (9-23); Calcium 10.4 mg/dL (8.5-10.1); Carbon Dioxide 22.7 mmol/L (20-30); Chloride 106 mmol/L (98-107); Glucose 142 mg/dL (74-106); Sodium 138 mmol/L (136-145); Total Protein 7.2 g/dL (5.7-8.2)
[2023-07-29 10:15] LABS: Urine Bacteria NONE SEEN /hpf (None Seen); Urine Blood Negative /uL (Negative); Urine Clarity Clear (Clear); Urine Color Colorless (Yellow); Urine Hyaline Cast FEW /lpf (0 - 2); Urine Protein, UAD Negative (Negative); Urine Specific Gravity 1.021 (1.001-1.035); Urine Urobilinogen Normal (Negative); Urine WBC 1 /hpf (0 - 5)
[2023-07-29 10:22] LABS: Amphetamine Screen, Urine Pos (NEGATIVE)
[2023-07-29 10:25] LABS: Benzodiazephine Screen, Urine Neg (NEGATIVE)
[2023-07-29 10:26] LABS: Barbiturate Scree,Urine Neg (NEGATIVE); Cannabinoid Screen, Urine Pos (NEGATIVE); Cocaine Screen, Urine Pos (NEGATIVE); Opiate Scree,Urine Neg (NEGATIVE); Phencyclidine Screen, Urine Neg (NEGATIVE)
[2023-07-29] MEDS ORDERED: NITR-87 PO (10:32)
== END 2023-07-29 11:18 | disposition home or self-care (01) ==
LOC: ER 08:07
DX: N39.0 Urinary tract infection, site not specified (principal); R53.1 Weakness; F12.10 Cannabis abuse, uncomplicated; F41.9 Anxiety disorder, unspecified; F32.9 Major depressive disorder, single episode, unspecified; K21.9 Gastro-esophageal reflux disease without esophagitis; I10 Essential (primary) hypertension; F17.210 Nicotine dependence, cigarettes, uncomplicated; F15.90 Other stimulant use, unspecified, uncomplicated; Z90.710 Acquired absence of both cervix and uterus; Z86.73 Personal history of transient ischemic attack (TIA), and cerebral infarction without residual deficits; Z79.899 Other long term (current) drug therapy
CPT/HCPCS: 36415; 80053; 80307; 81001; 85025

== ENCOUNTER 2024-04-15 06:03 | Emergency (ER) | payer MEDICAID ==
[~2024-04-15] VITALS: Ht 162.6 cm; Wt 86.2 kg
[~2024-04-15 06:03] MED LIST changes: +NITR-87 PO
[2024-04-15 06:35] VITALS: PULSE 64; RESP 14; O2SAT 100
[2024-04-15 06:44] VITALS: TEMP 97.9
[2024-04-15] MEDS: ACETAMINOPHEN 325 MG TAB PO ONE (06:44)
[2024-04-15] MEDS: cloNIDine HCL 0.1 MG TAB PO ONE (07:06)
[2024-04-15 07:54] VITALS: PULSE 55; RESP 12
[2024-04-15 09:17] VITALS: BP 165/107; PULSE 59; RESP 18; O2SAT 97
== END 2024-04-15 09:28 | disposition home or self-care (01) ==
LOC: ER 06:03 → EDBD 06:03 → ER 09:26
DX: M79.662 Pain in left lower leg (principal); I16.0 Hypertensive urgency; I25.2 Old myocardial infarction; K21.9 Gastro-esophageal reflux disease without esophagitis; F17.210 Nicotine dependence, cigarettes, uncomplicated; Z86.2 Personal history of diseases of the blood and blood-forming organs and certain disorders involving the immune mechanism; Z90.710 Acquired absence of both cervix and uterus; Z79.899 Other long term (current) drug therapy; Z88.5 Allergy status to narcotic agent
CPT/HCPCS: 93971